=== PATIENT | male | born 1960 | race Caucasian/White ===

== ENCOUNTER → 2020-03-08 07:36 | Outpatient (BNVA) | payer OTHER, SELFPAY | PROVIDERS: Visit Provider Nurse Practitioner | DX: G24.5 Blepharospasm (principal); G43.709 Chronic migraine without aura, not intractable, without status migrainosus; R56.9 Unspecified convulsions; Z86.73 Personal history of transient ischemic attack (TIA), and cerebral infarction without residual deficits | CPT/HCPCS: 99205; 99999 ==

== ENCOUNTER → 2020-03-20 07:56 | Outpatient (BNVA) | payer OTHER, SELFPAY | PROVIDERS: Referring Provider Nurse Practitioner; Visit Provider Specialist | DX: G40.909 Epilepsy, unspecified, not intractable, without status epilepticus (principal); G24.5 Blepharospasm; F17.290 Nicotine dependence, other tobacco product, uncomplicated | CPT/HCPCS: 95816 ==

== ENCOUNTER 2020-03-21 08:03 | Outpatient (CLI) | payer OTHER, SELFPAY ==
--- NOTE | 2020-03-21 08:13 | MR_ITS ---
WS: [id number] MRI HEAD WITH CONTRAST TECHNIQUE: Sagittal T1, T2 axial, T2 axial FLAIR, axial susceptibility weighted imaging, axial diffus ion weighted images, and coronal T2 images were obtained. Pre and post-T1 axial and post T1 coronal i mages. ADC and FSPGR images. CLINICAL INFORMATION: See DX COMPARISON: None. FINDINGS: No evidence of restricted diffusion to suggest acute ischemia. Ventricular system and basal cisterns are patent. Mild small vessel changes. Mild parenchymal volume loss. Normal posterior fossa. Normal v ascular flow voids at the skull base. No extra-axial fluid collections. No evidence of mass or mass e ffect. Chronic lacunar infarct right caudate. Mild mucosal thickening in the paranasal sinuses. Masto id air cells are well aerated. No hemosiderin on the susceptibility weighted images. Normal optic chiasm and pituitary infundibulum. Mild symmetric atrophy involving the temporal lobes a nd hippocampal formations. No abnormal gadolinium enhancement. Normal dural venous sinuses. Proximal 7th and 8th cranial nerves appear normal. No signal abnormalities in the mesial temporal lobes. MR/MR head wo/w con [id number] IMPRESSION: 1. No evidence of restricted diffusion to suggest acute ischemia. 2. Mild supratentorial white matter changes most consistent with small vessel disease in a patient this age. Mild parenchymal volume loss. 3. Chronic lacunar infarct right caudate. 4. Mild symmetric atrophy involving the temporal lobes and hippocampal formati ons. No signal abnormalities in the temporal lobes. 5. No abnormal gadolinium enhancement. 6. Mild mucosal thickening in the paranasal sinuses. Mastoid air cells are wel l aerated.
--- NOTE | 2020-03-21 08:21 | XR_ITS ---
WS: [id number] Orbits, 2 views, 03/21/2020 Clinical Data: FOR MRI Comparison: None. Findings: No radiopaque foreign bodies are seen in the regions of the orbits. The orbits are intact without fra cture. XR/XR eye foreign body [id number] Impression: Negative for radiopaque orbital foreign body.
[2020-03-24 10:38] LABS: Blood Urea Nitrogen 12 mg/dL (6-20); Glomerular Filtration Rate 86.4 mL/min (90-130)
== END 2020-03-21 08:04 | disposition home or self-care (01) ==
LOC: RADWPI 08:09
PROVIDERS: Family Provider Nurse Practitioner; PCP Nurse Practitioner; Visit Provider Nurse Practitioner
DX: G43.709 Chronic migraine without aura, not intractable, without status migrainosus (principal); R56.9 Unspecified convulsions; Z86.73 Personal history of transient ischemic attack (TIA), and cerebral infarction without residual deficits; I63.81 Other cerebral infarction due to occlusion or stenosis of small artery; G31.89 Other specified degenerative diseases of nervous system; J34.89 Other specified disorders of nose and nasal sinuses
CPT/HCPCS: 70030; 70553; 82565; 84520; A9579

== ENCOUNTER 2020-04-21 12:32 | Outpatient (CLI) | payer OTHER, SELFPAY ==
--- NOTE | 2020-04-21 12:42 | USCV_ITS ---
Lucas Sparks Age: 59 Gender: M : 1960 Exam Date: 04/21/2020 13:21 Ordering Phys: Bob BeckmanP MSN AGACNP-BC Technologist: Patrizia Carreon Exam Location: [facility] – [place] Indication: TIA Risk Factors: Unknown Previous Vascular Surgery: None Right Brachial BP: / Left Brachial BP: / Right Left Velocity (cm/s) Spectral Plaque Velocity (cm/s) Spectral Plaque Syst/Diast Broadening Syst/Diast Broadening 94.80/ 14.30 Prox CCA 116.90/ 28.60 84.90/ 23.20 Mid CCA 89.40 / 27.50 78.30/ 22.10 Hetro Distal CCA 75.60 / 16.00 55.20/ 21.80 Prox ICA 53.20 / 18.70 72.20/ 27.20 Mid ICA 68.90 / 25.40 79.90/ 27.80 Distal ICA 66.50 / 24.80 137.80 ECA 67.60 0.94 ICA/CCA 0.77 Antegrade Vertebral Antegrade 25.70/ 8.20 cm/s 35.00/ 9.70 cm/s Tri Subclavian Tri 101.3 72.50 0 CONCLUSIONS Right ICA stenosis <50%. Mild atheromatous plaque right carotid bulb/ICA. Left ICA stenosis <50%. Mild atheromatous plaque left carotid bulb/ICA. Normal antegrade Doppler flow noted in the right vertebral artery. Normal antegrade Doppler flow noted in the left vertebral artery. Christian Benavides MD (Electronically Signed) Final Date: 21 April 2020 16:46 S
--- NOTE | 2020-04-21 12:42 | USCV_ITS ---
Lucas Sparks Age: 59 Gender: M : 1960 Exam Date: 04/21/2020 12:59 Ordering Phys: Bob BeckmanP MSN AGACNP-BC Technologist: Patrizia Carreon [place] [facility] [place]: TIA BP: / HR: 69 Rhythm: Sinus Technical Quality: Adequate MEASUREMENTS (Male / Female) Normal Values 2D ECHO LV Diastolic Diameter PLAX 3.7 cm 4.2 - 5.9 / 3.9 - 5.3 cm LV Systolic Diameter PLAX 4.6 cm LV Chamber Size 4.0 cm IVS Diastolic Thickness 1.4 cm 0.6 - 1.0 / 0.6 - 0.9 cm IVS Systolic Thickness 2.1 cm LVPW Diastolic Thickness 1.3 cm 0.6 - 1.0 / 0.6 - 0.9 cm LVPW Systolic Thickness 2.2 cm RV Chamber Size 3.7 cm LVOT Diameter 2.0 cm LV Ejection Fraction 2D Teich 68.9 % LV Ejection Fraction MOD 2C 42.3 % LV Ejection Fraction 2C AL 47.6 % LA Diameter 3.9 cm LA Width 3.4 cm LA Height 4.4 cm RA Width 2.7 cm RA Height 4.4 cm Aorta at Sinotubular Diameter 4.0 cm M-MODE LV Diastolic Diameter MM 4.9 cm 4.2 - 5.9 / 3.9 - 5.3 cm LV Systolic Diameter MM 3.0 cm LV Ejection Fraction MM Teich 69.7 % IVS Diastolic Thickness MM 1.3 cm 0.6 - 1.0 / 0.6 - 0.9 cm IVS Systolic Thickness MM 1.4 cm LVPW Diastolic Thickness MM 1.1 cm 0.6 - 1.0 / 0.6 - 0.9 cm LVPW Systolic Thickness MM 1.8 cm RV Diastolic Diameter MM 1.1 cm Aortic Annulus Diameter 4.3 cm LA Ao Ratio MM 0.9 MV E Point Septal Separation 0.3 cm DOPPLER AV Peak Velocity 165.0 cm/s LVOT Peak Velocity 115.0 cm/s AV Area Cont Eq vti 2.5 cm squared AV Area Cont Eq pk 2.2 cm squared MV Area PHT 3.5 cm squared Mitral E to A Ratio 1.4 MV E' Velocity 10.0 cm/s Mitral E to MV E' Ratio 10.3 Mitral E to LV E' Lateral Ratio 10.3 Mitral E to LV E' Septal Ratio 10.3 TR Peak Velocity 210.1 cm/s TR Peak Gradient 17.7 mmHg TR Mean Velocity 141.5 cm/s TR Mean Gradient 9.4 mmHg TR Velocity Time Integral 47.7 cm TV Peak E Velocity 73.0 cm/s Right Atrial Pressure 3.0 mmHg Pulmonary Artery Systolic Pressu 20.7 mmHg PV Peak Velocity 84.0 cm/s RV Acceleration Time 0.2 s RV Ejection Time 0.3 s RV AcT/ET 0.7 FINDINGS Left Ventricle Normal left ventricular cavity size. Normal left ventricular systolic function. No regional wall motion abnormalities. Left ventricular ejection fraction is estimated at 60 %. Grade II/IV diastolic dysfunction, moderately elevated filling pressures. Right Ventricle The right ventricle is normal in size and function. Right Atrium The right atrium is normal in size. Left Atrium The left atrium is normal in size. Mitral Valve Moderately thickened mitral valve. No mitral valve stenosis. Mild mitral valve regurgitation. Aortic Valve Structurally normal aortic valve without significant sclerosis or stenosis. There is no aortic regurgitation. Tricuspid Valve Trace to mild tricuspid valve regurgitation. Pulmonic Valve Structurally normal pulmonic valve without significant stenosis. There is no pulmonic regurgitation. Pericardium Normal pericardium without effusion. Aorta Normal ascending aorta dimension. CONCLUSIONS 1-Normal left ventricular cavity size. Normal left ventricular systolic function. No regional wall motion abnormalities. Left ventricular ejection fraction is estimated at 60 %. Grade II/IV diastolic dysfunction, moderately elevated filling pressures. 2-Moderately thickened mitral valve. No mitral valve stenosis. Mild mitral valve regurgitation. 3-Structurally normal aortic valve without significant sclerosis or stenosis. There is no aortic regurgitation. 4-Trace to mild tricuspid valve regurgitation. 5-There is no pericardial effusion. 6-Pulmonary artery systolic pressure is within normal limits. 7-Right atrial pressure is around 5 mm of mercury. 8-There are no prior echocardiogram studies to compare. Dariel Bustamante MD (Electronically Signed) Final Date: 22 April 2020 20:21 S
== END 2020-04-21 12:33 | disposition home or self-care (01) ==
LOC: RAD 12:33
PROVIDERS: Family Provider Nurse Practitioner; PCP Nurse Practitioner; Visit Provider Nurse Practitioner
DX: Z86.73 Personal history of transient ischemic attack (TIA), and cerebral infarction without residual deficits (principal); G45.9 Transient cerebral ischemic attack, unspecified; I08.1 Rheumatic disorders of both mitral and tricuspid valves
CPT/HCPCS: 93306; 93880

== ENCOUNTER → 2020-12-25 10:48 | Outpatient (BNVA) | payer OTHER, SELFPAY | PROVIDERS: Family Provider Nurse Practitioner; PCP Nurse Practitioner; Visit Provider Nurse Practitioner | DX: G43.109 Migraine with aura, not intractable, without status migrainosus (principal); R56.9 Unspecified convulsions; F17.210 Nicotine dependence, cigarettes, uncomplicated | CPT/HCPCS: 99213; 99214 ==

== ENCOUNTER 2021-09-07 16:40 | Emergency (ER) | payer OTHER, SELFPAY ==
[2021-09-07] VITALS (7 sets, daily range): BP systolic 124–148; BP diastolic 80–91; PULSE 76–89; RESP 15–18; TEMP 36.3; O2SAT 97–100; BMI 27.8
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
[2021-09-07 19:56] LABS: Basophils % 0.4 %; Eosinophils % 0.1 %; Hematocrit 38.6 % (42.0-52.0); Hemoglobin 13.4 g/dL (11.7-16.6); Lymphocytes # 0.8 10^3/uL (0.8-4.8); Lymphocytes % 7.1 %; Mean Corpuscular HGB Conc 34.7 g/dL (30.0-36.0); Mean Corpuscular Hemoglobin 32.3 pg (28.0-34.0); Mean Platelet Volume 11.2 fL (7.4-10.4); Monocytes # 0.8 10^3/uL (0.2-0.9); Monocytes % 7.1 %; Neutrophils # 8.97 10^3/uL (1.8-7.7); Neutrophils % 84.5 %; Nucleated Red Blood Cells % 0 %; Platelet Count 128 10^3/cmm (130-400); Red Blood Count 4.15 10^6/uL (4.1-5.3); Red Cell Distribution Width 11.6 % (12.1-15.1); White Blood Count 10.6 10^3/uL (4.0-10.0)
[2021-09-07 20:05] LABS: INR 1.12 (0.8-1.2)
[2021-09-07] MEDS: morphine 4 mg/mL SDV 1 mL IVP (20:06)
[2021-09-07 20:10] LABS: Alanine Aminotransferase 14 U/L (0-41); Albumin Level 3.9 g/dL (3.5-5.2); Alkaline Phosphatase 52 IU/L (40-130); Anion Gap 17.4 (5-19); Aspartate Amino Transferase 22 U/L (0-40); Blood Urea Nitrogen 11 mg/dL (8-23); Calcium 8.2 mg/dL (8.5-10.5); Carbon Dioxide 18 mmol/L (22-29); Chloride 106 mmol/L (98-107); Globulin 1.8 g/dL (1.3-4.6); Glomerular Filtration Rate 98.3 mL/min (90-130); Glucose 94 mg/dL (65-115); Osmolality Calculated 285 mOsm/kg (285-295); Potassium 3.4 mmol/L (3.5-5.1); Sodium 138 mmol/L (136-145); Total Bilirubin 0.5 mg/dL (0.15-1.2); Total Protein 5.7 g/dL (6.6-8.7)
[2021-09-07] MEDS: iohexol 300 mg/mL 100 mL Btl IV (20:24)
[2021-09-07] MEDS: HYDROmorphone 1 mg/mL INJ 1 mL 0.5 MG IVP (22:26)
[2021-09-07] MEDS: ondansetron 2 mg/ML SDV 2 mL 4 MG IVP (22:27)
[2021-09-07 22:32] LABS: SARS Covid-2 Antigen Negative (Negative)
== END 2021-09-07 23:18 ==
PROVIDERS: Emergency Provider Emergency Medicine; PCP Nurse Practitioner
DX: Z04.1 Encounter for examination and observation following transport accident (principal); Z79.82 Long term (current) use of aspirin; I10 Essential (primary) hypertension; V89.2XXA Person injured in unspecified motor-vehicle accident, traffic, initial encounter; Z20.822 Contact with and (suspected) exposure to COVID-19
CPT/HCPCS: 71260; 72170; 72192; 74177; 80053; 85025; 85610; 86900; 87426; 96374; 96375; 99285; J1170; J2270; J2405; Q9967

== ENCOUNTER → 2021-12-24 15:31 | Outpatient (BNVA) | payer OTHER, SELFPAY | PROVIDERS: PCP Nurse Practitioner; Visit Provider Nurse Practitioner | DX: G43.109 Migraine with aura, not intractable, without status migrainosus (principal); R56.9 Unspecified convulsions | CPT/HCPCS: 99213; 99214 ==

== ENCOUNTER 2021-12-26 13:34 | Emergency (ER) | payer OTHER, SELFPAY ==
--- NOTE | 2021-12-26 13:37 | W.ED.SEIZURE ---
HPI - Seizure General: Chief Complaint: Seizure Stated Complaint: SEIZURE Time Seen by Provider: 12/26/21 13:36 History of Present Illness: HPI Narrative: Mr. Sparks is a 61-year-old gentleman with history of seizure-like episodes who presents to the emergency department due to seizure. He reports infrequent seizure history perhaps once every 3 to 4 years. While at work today he did have preceding abnormal feeling, in the past when he gets this feeling he is able to relax and lay down and does not always have a seizure, however due to work he had a seizure that was witnessed with tonic-clonic activity. He did have anterior tongue biting and loss of bowel and bladder continence. Per EMS the patient was combative and postictal. He currently feels back to baseline. He does have mild to moderate intensity muscle aches primarily in the back of his legs. He denies specific known provoking factors or recent changes in health. He has been compliant with his medication regimen. No other specific changes in health, exacerbating, or alleviating factors identified. Onset (ago): minute(s) Description of Episode: loss of consciousness, tonic-clonic movement, bladder incontinence and post-event confusion Witnessed: Yes - by Bystander Seizure History: Yes Place: Work Review of Systems General: Reports: 10 or more systems reviewed and unremarkable except in HPI and below PFSH ED PFSH: Medical History Family history of melanoma Hypertension Migraine headache with aura Seizure Seizure-like activity Family History Other CAD (coronary artery disease) Dementia Hypertension Stroke Social History Smoking and tobacco status: never smoked Alcohol intake: current Alcohol intake frequency: few times a week Alcohol type: beer History of recent travel: No Physical Exam Const: COMMON NORMALS: alert GENERAL APPEARANCE: cooperative and well developed HENMT: COMMON NORMALS: normocephalic HEAD & SCALP: normocephalic OTHER: Evidence of tongue bite on tip of tongue, no gross laceration or active bleeding. Eye: COMMON NORMALS: conjunctivae normal CONJUNCTIVA: Yes conjunctivae normal SCLERA: sclerae normal Neck/C-Spine: COMMON NORMALS: supple GENERAL: Yes trachea midline Resp: COMMON NORMALS: normal respiratory effort and clear to auscultation bilaterally EFFORT & INSPECTION: Yes able to speak in complete sentences AUSCULTATION: clear to auscultation bilaterally Cardio: COMMON NORMALS: regular rate and regular rhythm RATE: regular rate RHYTHM: regular rhythm GI: COMMON NORMALS: Soft to palpation PALPATION: Yes Soft to palpation and No Tenderness to palpation present (GI) PERCUSSION: normal to percussion Extremity: GENERAL: Yes normal exam except as noted and No edema Neuro: COMMON NORMALS: CN's II-XII intact bilaterally, moves all extremities, no focal motor deficits and no sensory deficits noted SENSORIUM/ORIENTATION: Yes alert and Yes Orientation impaired (mildly postictal appearing, non focal exam) Psych: COMMON NORMALS: mental status grossly normal and Normal thought process present THOUGHT PROCESS: Normal thought process present Course ED course: - Patient was seen and evaluated by me at bedside - Patient placed on cardiac monitors, IV access obtained -IV fluids given - Initial evaluation notable for exam as above, no focal deficits. - Labs personally interpreted by me - Labs notable for no leukocytosis, normal hemoglobin. Metabolic panel with mild decreased bicarb likely secondary to seizure activity. Prolactin greater than 3 times upper limit of normal. - Upon serial reexamination after treatment the patient was improved with resolution of postictal findings. - Based on patient history, evaluation, and testing as interpreted the most likely cause of the patient's condition is seizure. Discussed with neurology and patient will be started on antiepileptic and plan for neurology follow-up - The results of ED evaluation were discussed with the patient including prescriptions and/or symptomatic cares (if applicable) including appropriate and responsible use, seizure precautions, followup plan, and return precautions. The patient verbalized understanding and felt safe for discharge. - Patient discharged in satisfactory condition. Note: Click bubbles or prepopulated chester in note writing are used for assistance with data collection and billing and are inherently more limited than narrative and other text portions of this note. Please use narrative for additional clinical history and defer to narrative/free test for any case of contradictory information. If information appears in only free text or click bubble it should be considered present or absent as reported. Please contact note technical proposal writer for clarifications of clinical information or contradictory information. MDM is a brief summary, contradictory or erroneous seeming information should be clarified and full note should be reviewed. Vital Signs: Vital signs: Vital Signs Temperature 98.1 F 12/26/21 16:44 Pulse Rate 78 12/26/21 16:44 Respiratory Rate 14 12/26/21 16:44 Blood Pressure 124/74 12/26/21 16:44 Pulse Oximetry 95 12/26/21 16:44 MDM - Seizure MDM Narrative Medical decision making narrative: 61-year-old seizure-like episodes though no EEG confirmation presenting with seizure. This was associated with anterior tongue biting, loss of continence, and postictal combativeness witnessed by EMS. Patient mildly postictal on initial evaluation. Improved throughout ED course. Discussed with neurology and will initiate Keppra. Ortiz for outpatient follow-up. Medical Records Attestation: I reviewed the patient's medical records. Lab Data Attestation: I reviewed the patient's lab results. Result diagrams: 12/26/21 14:10 12/26/21 14:10 Labs: Laboratory Results WBC 7.0 10^3/uL (4.0-10.0) 12/26/21 14:10 RBC 4.74 10^6/uL (4.1-5.3) 12/26/21 14:10 Hgb 15.3 g/dL (11.7-16.6) 12/26/21 14:10 Hct 43.5 % (42.0-52.0) 12/26/21 14:10 MCV 91.8 fl (80-94) 12/26/21 14:10 MCH 32.3 pg (28.0-34.0) 12/26/21 14:10 MCHC 35.2 g/dL (30.0-36.0) 12/26/21 14:10 RDW 11.8 % (12.1-15.1) L 12/26/21 14:10 Plt Count 152 10^3/cmm (130-400) 12/26/21 14:10 MPV 11.1 fL (7.4-10.4) H 12/26/21 14:10 Neut % (Auto) 77.1 % 12/26/21 14:10 Lymph % (Auto) 14.5 % 12/26/21 14:10 Glasscock % (Auto) 6.8 % 12/26/21 14:10 Eos % (Auto) 0.9 % 12/26/21 14:10 Baso % (Auto) 0.4 % 12/26/21 14:10 Neut # (Auto) 5.43 10^3/uL (1.8-7.7) 12/26/21 14:10 Lymph # (Auto) 1.0 10^3/uL (0.8-4.8) 12/26/21 14:10 Glasscock # (Auto) 0.5 10^3/uL (0.2-0.9) 12/26/21 14:10 Eos # (Auto) 0.1 10^3/uL (0.0-0.8) 12/26/21 14:10 Baso # (Auto) 0.0 10^3/uL (0.0-0.1) 12/26/21 14:10 Nucleated RBC % (auto) 0 % 12/26/21 14:10 Nucleated RBCs # 0.0 /100WBC 12/26/21 14:10 Sodium 137 mmol/L (136-145) 12/26/21 14:10 Potassium 3.9 mmol/L (3.5-5.1) 12/26/21 14:10 Chloride 104 mmol/L (98-107) 12/26/21 14:10 Carbon Dioxide 18 mmol/L (22-29) L 12/26/21 14:10 Anion Gap 18.9 (5-19) 12/26/21 14:10 BUN 11 mg/dL (8-23) 12/26/21 14:10 Creatinine 0.9 mg/dL (0.7-1.2) 12/26/21 14:10 GFR Calculation 85.8 mL/min (90-130) L 12/26/21 14:10 Glucose 79 mg/dL (65-115) 12/26/21 14:10 Calculated Osmolality 282 mOsm/kg (285-295) L 12/26/21 14:10 Calcium 9.5 mg/dL (8.5-10.5) 12/26/21 14:10 Total Bilirubin 0.3 mg/dL (0.15-1.2) 12/26/21 14:10 AST 19 U/L (0-40) 12/26/21 14:10 ALT 14 U/L (0-41) 12/26/21 14:10 Alkaline Phosphatase 107 IU/L (40-130) 12/26/21 14:10 Total Protein 7.0 g/dL (6.6-8.7) 12/26/21 14:10 Albumin 4.3 g/dL (3.5-5.2) 12/26/21 14:10 Globulin 2.7 g/dL (1.3-4.6) 12/26/21 14:10 Prolactin 54.76 ng/mL (4.0-15.2) H 12/26/21 14:10 Prolactin Cancelled 12/26/21 14:10 Discharge Plan Discharge Patient Disposition: Home Clinical Impression: Generalized seizure Condition: Stable Prescriptions: New Keppra 500 mg tablet 500 mg PO BID Qty: 60 0RF No Action sulfamethoxazole-trimethoprim [Bactrim DS] 800-160 mg tablet 1 tab PO BID 7 Days Qty: 14 0RF mupirocin 2 % ointment 1 applic topical BID 7 Days Qty: 22 0RF citalopram 40 mg tablet 40 mg PO DAILY 0RF sildenafil 100 mg tablet 100 mg PO DAILY PRN0RF Rx Instructions: administer 30 minutes to 4 hours before activity aspirin [Adult Low Dose Aspirin] 81 mg tablet,delayed release (DR/EC) 81 mg PO DAILY Qty: 30 3RF sumatriptan succinate [Imitrex] 100 mg tablet See Rx Instructions PO .COMPLEX PRN (Reason: migraine headache) Qty: 9 3RF Rx Instructions: take 1 tab at onset of headache;may repeat 1 tab after at least 2 hrs; max =2 tabs/24 hrs topiramate [Topamax] 100 mg tablet 100 mg PO DAILY Qty: 90 2RF Discharge Orders: Discharge ED (Routine); Ordered 12/26/21 Ordered By: Miguel A Palacios Referrals: Vilma Lomeli FNP [Primary Care Provider] - Discharge Diet: Usual diet Discharge Activity: Limit activity as instructed Patient Instructions: Generalized Tonic Clonic Seizures (ED) Activity Restrictions/Additional Instructions: Thank you for visiting the emergency department. You were seen and evaluated for seizure. The exact cause of seizure is unclear though based on description likely secondary to seizure disorder. You will be started on Keppra. Please follow-up with neurology. Please follow all seizure precautions as discussed including no driving, do not take baths in a tub or swim, do not cook over open flames, climb tall objects, or otherwise perform dangerous activities if you were to have another seizures. Please return to the emergency department for recurrent seizures or anything else that you are concerned about and feel needs emergency department evaluation. Coding Level of Care Code ED Human Resources Records Clerk for X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 Exam Comprehensive
[2021-12-26 13:48] VITALS: BP 150/76; PULSE 83; RESP 15; TEMP 36.7; O2SAT 95; BMI 28.8
[2021-12-26] MEDS: sodium chloride 0.9% 1,000 ML 999 ML IV (14:13)
[2021-12-26 14:23] LABS: Basophils % 0.4 %; Eosinophils # 0.1 10^3/uL (0.0-0.8); Eosinophils % 0.9 %; Hematocrit 43.5 % (42.0-52.0); Hemoglobin 15.3 g/dL (11.7-16.6); Lymphocytes % 14.5 %; Mean Corpuscular HGB Conc 35.2 g/dL (30.0-36.0); Mean Corpuscular Hemoglobin 32.3 pg (28.0-34.0); Mean Corpuscular Volume 91.8 fl (80-94); Mean Platelet Volume 11.1 fL (7.4-10.4); Monocytes # 0.5 10^3/uL (0.2-0.9); Monocytes % 6.8 %; Neutrophils # 5.43 10^3/uL (1.8-7.7); Neutrophils % 77.1 %; Nucleated Red Blood Cells % 0 %; Platelet Count 152 10^3/cmm (130-400); Red Blood Count 4.74 10^6/uL (4.1-5.3); Red Cell Distribution Width 11.8 % (12.1-15.1)
[2021-12-26 14:31] VITALS: PULSE 81; RESP 15; TEMP 36.7; O2SAT 95
[2021-12-26 15:10] LABS: Alanine Aminotransferase 14 U/L (0-41); Albumin Level 4.3 g/dL (3.5-5.2); Alkaline Phosphatase 107 IU/L (40-130); Anion Gap 18.9 (5-19); Aspartate Amino Transferase 19 U/L (0-40); Blood Urea Nitrogen 11 mg/dL (8-23); Calcium 9.5 mg/dL (8.5-10.5); Carbon Dioxide 18 mmol/L (22-29); Chloride 104 mmol/L (98-107); Globulin 2.7 g/dL (1.3-4.6); Glomerular Filtration Rate 85.8 mL/min (90-130); Glucose 79 mg/dL (65-115); Osmolality Calculated 282 mOsm/kg (285-295); Potassium 3.9 mmol/L (3.5-5.1); Prolactin 54.76 ng/mL (4.0-15.2); Sodium 137 mmol/L (136-145); Total Bilirubin 0.3 mg/dL (0.15-1.2)
[2021-12-26 15:32] VITALS: BP 118/75; PULSE 72; RESP 13; TEMP 36.8; O2SAT 96
[2021-12-26 16:43] VITALS: BP 124/74; PULSE 78; RESP 14; TEMP 36.7; O2SAT 95
[2021-12-26 16:44] VITALS: BP 124/74; PULSE 78; RESP 14; TEMP 36.7; O2SAT 95
== END 2021-12-26 16:35 | disposition home or self-care (01) ==
PROVIDERS: Emergency Provider Emergency Medicine; PCP Nurse Practitioner
DX: G40.409 Other generalized epilepsy and epileptic syndromes, not intractable, without status epilepticus (principal); Z79.82 Long term (current) use of aspirin; I10 Essential (primary) hypertension
CPT/HCPCS: 80053; 84146; 85025; 96360; 99284; J7030

== ENCOUNTER → 2022-05-31 15:23 | Outpatient (BNVA) | payer OTHER, SELFPAY | PROVIDERS: PCP Nurse Practitioner; Visit Provider Nurse Practitioner | DX: G43.109 Migraine with aura, not intractable, without status migrainosus (principal); R56.9 Unspecified convulsions | CPT/HCPCS: 99213; 99214 ==

== ENCOUNTER → 2023-01-01 13:10 | Outpatient (BNVA) | payer OTHER, SELFPAY | PROVIDERS: PCP Nurse Practitioner; Visit Provider Internal Medicine | DX: I10 Essential (primary) hypertension (principal); R07.9 Chest pain, unspecified; R06.02 Shortness of breath | CPT/HCPCS: 99204 ==

== ENCOUNTER 2023-01-30 06:06 | Outpatient (CLI) | payer OTHER, SELFPAY ==
[2023-01-30 06:52] VITALS: BMI 26.6
--- NOTE | 2023-01-30 06:52 | ECG_ITS ---
[facility] Test Date: 2023-01-30 Pat Name: Lucas Sparks Department: Room: Gender: Male Loom Changer: Malia Mitchell : 1960 Requested By: Hero Jameson Order Number: [id number] Stephens MD: Hero Jameson M.D. Interpretive Statements NAME OF STUDY: EXERCISE SESTAMIBI STRESS TEST INDICATION: [Chest Pain, ] EXERCISE DATA: The patient was exercised by Raciel protocol. Baseline heart rate was 61 beats per minute. Baseline blood pressure was 137/82 millimeters of mercury. Target heart rate was 134 beats per minute. Maximum heart rate achieved was 175 which was 130% of the target heart rate. Maximum blood pressure was 197/112 millimeters of mercury. Total exercise time was 9 minutes and 49 seconds. Maximum METs achieved was 13.5. The reason for ending the test was completion of the protocol. The patient complained of shortness of breath during the stress test, which then resolved at the end of the test. ELECTROCARDIOGRAM: BASELINE: Showed sinus rhythm, normal axis, no significant ST-T changes at the baseline noted. [] EXERCISE: At the peak exercise level, [] patient had [address] depressions noted on the leads V4-V6 RECOVERY: During the recovery period, heart rate dropped appropriately. No significant ST-T changes in the recovery suggestive of ischemia noted. [] CONCLUSION: 1. Exercise capacity excellent 2. Heart rate response was appropriate 3. Blood pressure response was appropriate 4. Symptoms not suggestive of ischemia. 5. Electrocardiogram portion of the stress test suggestive of ischemia with ST depressions noted in the leads V4-V6. 6. Nuclear scan will be documented separately. Electronically Signed On 02-10-2023 12:02:46 CDT by Hero Jameson M.D. [email or web address]
--- NOTE | 2023-01-30 06:52 | NMCV_ITS ---
NM butch perf SPECT r/s* [id number] Clare Lucas Age: 62 Gender: M : 1960 Exam Date: 01/30/2023 07:43 Ordering Phys: Hero Jameson M.D ([email or web address]) Technologist: ISRAEL Murillo Exam Location: [facility] Indications: CHEST PAIN, SHORTNESS OF BREATH STRESS TEST Please see separate stress test report in [facility] for full findings IMAGE PROTOCOL Rest/Stress 1 Exercise Day Radiopharmaceutical Dose (mCi) Administration Site Administered by Rest: Tc-99m 10.6 IV ISRAEL Galvez Sestamibi Stress:Tc-99m 32.8 IV ISRAEL Galvez Sestamielier Rest: 30-Jan-2023 60 Discovery 630 Stress: 30-Jan-2023 30 Discovery 630 Radiopharmaceutical was injected at 98 % maximum heart rate. Images obtained in supine and prone position. SPECT RESULTS Technical Quality: Excellent Raw Data Analysis: Normal Image Corrections: No attenuation or motion correction applied Summed Stress Score: 6 Summed Rest Score: 0 Summed Difference Score: 6 PERFUSION FINDINGS There is a large sized, reversible perfusion defect noted in inferior and inferolateral kelley. This is consistent with large area of ischemia in left circumflex artery and RCA territories. FUNCTIONAL RESULTS (calculated via Gated SPECT) Stress Image LV EF (%): 60 Stress EDV (mL):104 TID: 0.97 Stress ESV (mL):42 FUNCTIONAL FINDINGS: There is normal left ventricular systolic function. IMPRESSIONS 1. Abnormal myocardial perfusion imaging with large sized area of ischemia noted in the RCA and left circumflex artery territories. 2. LV systolic function is normal Hero Jameson MD (Electronically Signed) Final Date: 30 January 2023 11:34 S
[2023-01-30 08:40] VITALS: BP 130/74; PULSE 91
== END 2023-01-30 06:07 | disposition home or self-care (01) ==
PROVIDERS: PCP Nurse Practitioner; Visit Provider Internal Medicine
DX: R07.9 Chest pain, unspecified (principal)
CPT/HCPCS: 36415; 78452; 93017; A9500

== ENCOUNTER 2023-02-10 05:51 | Outpatient (CLI) | payer OTHER, SELFPAY ==
[2023-02-10] VITALS (17 sets, daily range): BP systolic 124–166; BP diastolic 79–116; PULSE 47–74; RESP 9–23; TEMP 36.9–37.1; O2SAT 96–100; BMI 28.0
[2023-02-10] MEDS: aspirin 325 mg Tablet PO (06:20)
[2023-02-10] MEDS: diphenhydrAMINE 50 mg Capsule PO (06:20)
[2023-02-10 06:37] LABS: Basophils % 0.7 %; Eosinophils # 0.1 10^3/uL (0.0-0.8); Eosinophils % 1.6 %; Hematocrit 45.7 % (42.0-52.0); Hemoglobin 15.7 g/dL (11.7-16.6); Lymphocytes # 1.6 10^3/uL (0.8-4.8); Lymphocytes % 27.7 %; Mean Corpuscular HGB Conc 34.4 g/dL (30.0-36.0); Mean Corpuscular Volume 93.1 fl (80-94); Mean Platelet Volume 10.7 fL (7.4-10.4); Monocytes # 0.5 10^3/uL (0.2-0.9); Monocytes % 8.1 %; Neutrophils # 3.46 10^3/uL (1.8-7.7); Neutrophils % 61.9 %; Nucleated Red Blood Cells % 0 %; Platelet Count 152 10^3/cmm (130-400); Red Blood Count 4.91 10^6/uL (4.1-5.3); Red Cell Distribution Width 11.7 % (12.1-15.1); White Blood Count 5.6 10^3/uL (4.0-10.0)
--- NOTE | 2023-02-10 07:00 | XACV_ITS ---
Exam Room: 2 Ht: 175 cm Wt: 86 kg BSA: 2.07 m2 Gender: Male : 1960 Any Known Allergies: Other Exam Priority: Routine Procedure(s): Procedure Description: Diagnostic procedure Procedure Description: PCI procedure Procedure Description: Left Heart Catheterization Procedure Description: Coronary IVUS Procedure Description: Drug Eluting Coronary Stent Procedure Description: PTCA Procedure Description: Miscellaneous Procedure Description: ACT Procedure Description: Coronary Angiography Diagnostic Cath Status: Elective Diagnostic Findings * INDICATION: 62-year-old man with medical history of hypertension who has been having chest pain episodes, dyspnea on exertion. He underwent stress test that large area of ischemia in the left circumflex artery and RCA territories. * Left Main has no significant disease. * Right Coronary Artery has moderate diffuse luminal irregularities. * Left circumflex artery is a large sized vessel. * Mid left circumflex artery has a calcified severe 80% stenosis. OM 2 is totally occluded with left to left collaterals. OM 3 has diffuse disease however is small to medium sized vessel. * M * id Circumflex: significant 80% stenosis, MADDY: 3 flow. * Proximal Left Anterior Descending: moderate 50% stenosis, MADDY: 3 flow. * Coronary angiography shows right dominance. PCI Status: Elective PCI Indication: Other Interventional Findings * PROCEDURE DETAIL: We engaged left main artery with XB 3.5 guide catheter. IV heparin was administered to maintain anticoagulation. 0.014 run-through guidewire was used to cross mid circumflex artery stenosis and was put in distal vessel. We predilated the stenosis with 3.0 x 12 mm semicompliant balloon. We then performed IVUS to size the vessel. This was followed by placement of 3.5 x 15 mm resolute [place] drug-eluting stent. We then postdilated proximal part of stent with 4.0 x 12 mm semicompliant balloon followed by 4.0 x 8 mm NC balloon. At this time final angiogram was performed that showed excellent stent expansion, MADDY-3 flow and no residual stenosis.. * Mid Circumflex: 80% stenosis treated with a AB TREK 3.00X12 RX BALLOON, NATALIE Robins LANA 3.5X15 KARON, AB TREK 4.00X12 RX BALLOON, and NATALIE SIM EUPHORA RX 4.22E44SE BALLOON. 0% residual stenosis, MADDY: 3 flow. Conclusions 1. Severe mid left circumflex artery stenosis s/p successful revascularization with KARON x 1. 2. Mid Circumflex was treated with a Balloon, Drug Eluting Stent, Balloon, and Balloon. Recommendations * Aggressive risk factor modification. * Dual antiplatelet therapy with aspirin and plavix for atleast 1 year. * High intensity statin therapy. * Outpatient cardiology follow up in 2 weeks. Interventional RX Recommendation: PCI w/o planned CABG Diagnostic RX Recommendation: PCI w/o planned CABG Anticoagulation: Heparin Pressures Phase:Rest AO : 101 / 72 ( 86 ) @ 8:52:00 AM 105 / 75 ( 91 ) @ 8:55:00 AM 128 / 73 ( 96 ) @ 8:57:00 AM 129 / 73 ( 97 ) @ 8:57:00 AM 135 / 77 ( 99 ) @ 9:02:00 AM 127 / 71 ( 93 ) @ 9:32:00 AM LV : 137 / -11 / 14 @ 8:57:00 AM 136 / -10 / 14 @ 8:57:00 AM Valves Phase:DefaultPhase AV : 7.0 @ 8:40:24 AM AV Mean Gradient: 11.0 @ 8:40:24 AM 11.0 @ 8:40:24 AM Clinical Evaluation EBL: 5mL-10mL Procedural Details Procedure Consent Obtained. Admit Source: Out Patient. Pre-Procedure Time Out. Identified patient by full name and date of as verbalized by the patient/guarantor. Does the consent match the physician's order: Yes. Accurate & Complete Informed Consent: Yes. Inpatient/Outpatient History & Physical on Chart: Yes. If H&P is completed, is and addenduem needed: No; If yes, is the addendum complete: N/A. Visualize and Verify Site with Patient/Guarantor: N/A. Relevant Radiology Images available: Yes. The risks, benefits, and alternatives of sedation and/or procedure were discussed by physician. The patient agrees to continue. Procedure started. [facility] Clinical Fraility Score: 3: Managing Well. Real Estate Services Coordinator Indications: Worsening Angina. Chest Pain Symptom Assessment: Atypical Angina. Correct patient, site and procedure confirmed by cath team. Current diagnosis: Chest Pain, Abnormal stress test. PERRLA. Strong, equal hand sales order coordinator bilaterally. Lungs clear x 5 lobes. IV Site on Arrival: 18 gauge in the right anticubital. IV Fluids: 0.9% NaCl at 75ml/hr. 0 mL infused prior to labeler. Pre Procedural Pulses: bilateral dorsalis pedis was Doppled. Pre Procedural Pulses: bilateral posterior tibial was 2+. Pre Procedural Pulses: bilateral radial was 3+. Oxygen started at 2liters/min via nasal canula. right radial was prepped with chloroprep then draped in the usual sterile fashion. right groin was prepped with chloroprep then draped in the usual sterile fashion. Baseline sample Acquired. HR: 60 BPM. Physician notified. Physician arrived. Physician scrubbed in. Immediate Pre-Procedure Time Out. Correct Patient: Yes; Correct Procedure: Yes; Correct Site: Yes; Correct Patient Position: Yes; Correct Supplies: Yes; Dried Flammable Prep: Yes; Blood Products Available: No;. Lidocaine 1% infiltrated to the right radial. Arterial access obtained. A 5 occitan TIG catheter in over exchange wire. Multiple views taken of left coronary artery. Catheter redirected to the RCA. Multiple views taken of right coronary artery. Exchange wire in through catheter. Catheter seated in LV. Wire out. EDP Sample taken: LV 137/-12,14; HR: 60 BPM; SpO2: 100%. Pullback taken: LV 136/-11,14; AO 128/73(96); Mean: 11mmHg, Peak to Peak: 7mmHg, SEP: 18sec/min; HR: 58 BPM; SpO2: 100%. Catheter removed over the exchange wire. 6 occitan XB 3 guide catheter was inserted over the wire. Supplies: Co-ferry pilot, endoflator. Runthrough guidewire was advanced through the guide catheter to lesion in the mid Circ. Balloon inserted to lesion in the mid Circ. Inflation number : 1 A AB TREK 3.00X12 RX BALLOON was prepped and advanced across the Mid CX , then inflated to 12 BELIA for 0:11 seconds. Inflation number: 2 The AB TREK 3.00X12 RX BALLOON was reinflated across the Mid CX, to 12 BELIA for 0:11 seconds. Inflation number: 3 The AB TREK 3.00X12 RX BALLOON was reinflated across the Mid CX, to 12 BELIA for 0:12 seconds. Inflation number: 4 The AB TREK 3.00X12 RX BALLOON was reinflated across the Mid CX, to 12 BELIA for 0:24 seconds. Balloon out. IVUS catheter in over runthrough wire. IVUS catheter run of mid circumflex. IVUS catheter out. Inflation Number : 5 A NATALIE R LANA 3.5X15 KARON -Lot Number#[id number] EXP 02-18-2025 was prepped and advanced across the Mid CX. The stent was deployed at 12 BELIA for 0:22 seconds. Stent inserted to lesion in the mid Circ. Angiography performed, checking results. Stent balloon out over wire. Balloon inserted to lesion in the mid Circ. Unable to cross. NC balloon out intact. Guideliner support catheter advanced over runthrough wire. ACT drawn. Results 394 seconds. Therapeutic limits - pre-heparin administration 90-150 seconds and monitoring heparin during a vascular procedure >250 seconds. NC Balloon inserted to lesion in the mid Circ. Unable to cross. NC balloon out intact. Inflation number : 6 A AB TREK 4.00X12 RX BALLOON was prepped and advanced across the Mid CX , then inflated to 18 BEILA for 0:18 seconds. Balloon inserted to lesion in the mid Circ. Balloon out. NC Balloon inserted to lesion in the mid Circ. Inflation number : 7 A MDT NC EUPHORA RX [id number] BALLOON was prepped and advanced across the Mid CX , then inflated to 16 BELIA for 0:14 seconds. Balloon out. Guideliner out. Angiography performed, checking results. Runthrough out. Angiography perfomed, checking results. ACT drawn. Results 320 seconds. Therapeutic limits - pre-heparin administration 90-150 seconds and monitoring heparin during a vascular procedure >250 seconds. Guide catheter out over exchange wire. Physician scrubbed out. Post Procedure: Pulses reassessed and unchanged. PERRLA. Strong, equal hand sales order coordinator bilaterally. No VTE prophylaxis required. Medication's Wasted: Lidocaine 1% = 1 mL. Medication's Wasted: Nitro = 49.8 mg. Medication's Wasted: Heparin = 2000 units. Medication's Wasted: Other = Fentanyl 25 mcg. Total IV fluids: 70 mL. A TR Band was successful obtaining hemostatsis at the Right Radial artery insertion site. Post-op diagnosis: Severe mid circumflex stenosis, post placement of 1 stent. Complications: None. Estimated blood loss: 5mL-10mL. Responsiveness - Normal response to verbal stimuli; alert and oriented, PERRLA. Airway - Unaffected, no intervention required; spontaneous ventilation. Circulation: W/N/L, pulses unchanged. Nausea/Vomiting: No. Procedure completed. Patient transferred by wheelchair to CPRU. Vital chart was stopped. Access Site Site: Right Radial artery Sheath Size: 6 Fr Hemostasis Method: TR Band Hemostasis Success: Successful Procedure Medications Start: 7:40 AM Stop: 7:40 AM Medication: Versed Amount: 1 mg Route: I.V. Start: 7:40 AM Stop: 7:40 AM Medication: Fentanyl Amount: 50 mcg Route: I.V. Start: 7:47 AM Stop: 7:47 AM Medication: Versed Amount: 1 mg Route: I.V. Start: 7:50 AM Stop: 7:50 AM Medication: Nitrogylcerin Amount: 200 mcg Route: I.A. Start: 7:51 AM Stop: 7:51 AM Medication: Heparin Amount: 5000 units Route: I.V. Start: 8:03 AM Stop: 8:03 AM Medication: Heparin Amount: 4000 units Route: I.V. Start: 8:05 AM Stop: 8:05 AM Medication: Versed 1 mg and Fentanyl 25 mcg Route: I.V. Start: 8:15 AM Stop: 8:15 AM Medication: Versed Amount: 1 mg Route: I.V. Start: 8:38 AM Stop: 8:38 AM Medication: Plavix Amount: 600 mg Route: P.O. I, the attending physician, have reviewed and verified all procedure medications. Yes, all medications given per verbal order History/Risk Factors Hypertension: Yes Dyslipidemia: No Peripheral Arterial Disease (PAD): No Myocardial Infarction (RI): No Obesity: No Renal Disease: No Tobacco Use: Never Prior Interventions PCI: No CABG: No Valve Surgery: No Report Signatures Finalized by Hero Jameson MD on 02/22/2023 07:04 PM
[2023-02-10 07:19] LABS: Anion Gap 12.7 (5-19); Blood Urea Nitrogen 11 mg/dL (8-23); Calcium 8.9 mg/dL (8.5-10.5); Carbon Dioxide 25 mmol/L (22-29); Chloride 103 mmol/L (98-107); Glomerular Filtration Rate 75.7 mL/min (90-130); Glucose 110 mg/dL (65-115); Osmolality Calculated 284 mOsm/kg (285-295); Potassium 3.7 mmol/L (3.5-5.1); Sodium 137 mmol/L (136-145)
--- NOTE | 2023-02-10 07:38 | W.PM.OPSFHP ---
Same Day Surgery H&P Indication for Procedure/HPI DATE OF PROCEDURE: February 10, 2023 CHIEF COMPLAINT/INDICATIONFOR SURGICAL PROCEDURE: Chest pain/ abnormal stress test PREOP DIAGNOSIS: Chest pain/ abnormal stress test PLANNED PROCEDURE: Operation Date: 02/10/23 07:00 Proposed Procedures p LEFT HEART CATH 38456,R94.39(Left) - Hero Jameson M.D Possible percutaneous coronary intervention 62-year-old man with medical history of hypertension who has been having chest pain episodes, dyspnea on exertion. He underwent stress test that large area of ischemia in the multiple Coronary artery territories. Plan for coronary angiogram with possible percutaneous coronary intervention. Patient had questions regarding possible stent placement. Had a detailed discussion regarding these. He is agreeable to PCI if needed. Risks and benefits of the procedure discussed with the patient. Medications/Allergies* Home Medications Medication Instructions Recorded Confirmed Type tadalafil 20 mg tablet 20 mg PO .weekly PRN Erectile 01/01/23 02/10/23 History Dysfunction Allergies/Adverse Reactions Allergy/AdvReac Type Severity Reaction Status Date / Time hydrocortisone Allergy unk Verified 02/10/23 07:20 Current Medications: Generic Name Dose Route Start Last Admin Trade Name Freq PRN Reason Stop Dose Admin Sodium Chloride 1,000 mls @ 50 mls/hr 02/10/23 06:00 02/10/23 06:53 Sodium Chloride 0.9% IV 02/11/23 01:59 Not Given .Q20H ONE Pertinent History/Comorbid Conditions* Medical History (Updated 01/01/23 @ 14:32 by Hero Jameson M.D) Family history of melanoma Hypertension Migraine headache with aura Seizure Seizure-like activity Family History (Updated 03/08/20 @ 08:05 by Wilda Madrid RN) CAD (coronary artery disease) Dementia Hypertension Stroke Social History Smoking and tobacco status: never smoked Alcohol intake: current Alcohol intake frequency: few times a week Alcohol type: beer Pertinent Exam Findings alert, oriented x 3, clear to auscultation bilaterally and regular rate & rhythm Conscious Sedation Assessment PATIENT ASSESSED PRIOR TO SEDATION, WITH NO CHANGE NOTED: Yes AIRWAY EVAL/ANESTHESIA PLAN: normal airway, ASA III, Local Anesthesia, Risks, benefits & alternatives of sedation and/or procedure discussed and Patient agrees to continue as planned ADDITIONAL INFORMATION: Moderate sedation Recommendations Surgery/Procedure today (Left heart cath with possible percutaneous coronary intervention) Coding Level of Care Code Acute Code for Chg Fwd Diagnoses
--- NOTE | 2023-02-10 08:45 | SUR.EXTENDED ---
RECEIVED THE PATIENT BACK FROM SYSTEMS QA ANALYST VIA WHEELCHAIR S/P [facility] WITH PCI. PATIENT AMBULATED TO THE BED WITH EASE. ALERT AND ORIENTED X 3. CORRESPONDENCE SPECIALIST PLACED AND VITAL SIGNS OBTAINED. TR BAND INTACT TO THE RIGHT RADIAL WITH NO BLEEDING OR HEMATOMA NOTED. FATHER AT BEDSIDE. POST RADIAL PCI ACTIVITY INSTRUCTIONS GIVEN TO THE PATIENT WITH HIS VERBALIZATION VOICED. NO OTHER ASSESSMENT CHANGES NOTED FROM PRE CATH ASSESSMENT. WILL TRANSFER TO CSU ROOM 103 AFTER RECOVERY PERIOD.
--- NOTE | 2023-02-10 09:24 | PC.NURSE ---
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
[2023-02-10] MEDS: sodium chloride 0.9% 1,000 ML 50 ML IV (09:47)
--- NOTE | 2023-02-10 12:55 | PM.SDS ---
Short Stay Summary Providers Date of Admit/Discharge: 02/10/23 Attending Provider: Hero Jameson M.D Primary Care Provider: CLEMENTE Diaz Chief Complaint: R94.39 HPI History of Present Illness 62-year-old man with medical history of hypertension who has been having chest pain episodes, dyspnea on exertion.? He underwent stress test that large area of ischemia in the multiple Coronary artery territories. Plan for coronary angiogram with possible percutaneous coronary intervention. Review of Systems Const: Denies: fever(s) or chills Eyes: Denies: change in vision ENMT: Denies: bleeding gums Card: Reports: lightheadedness; Denies: chest pain, palpitations, irregular heart rhythm, swelling of feet/ankles, syncope, pre-syncope or dyspnea on exertion Resp: Denies: wheezing, hemoptysis or chest congestion GI: Denies: hematochezia : Denies: hematuria Musc: Denies: neck pain or back pain Skin/Breast: Reports: dry skin Neuro: Denies: headache(s) or dizziness Psych: Reports: anxiety and depression Endo: Reports: tired all the time Low/Lymph: Denies: easy bruising or easy bleeding All/Imm: Denies: seasonal rhinorrhea Home Meds/Allergies Home Medications and Allergies Home Medications Medication Instructions Recorded Confirmed Type tadalafil 20 mg tablet 20 mg PO .weekly PRN Erectile 01/01/23 02/17/23 History Dysfunction Allergies Allergy/AdvReac Type Severity Reaction Status Date / Time hydrocortisone Allergy unk Verified 02/17/23 11:21 PFSH Acute PFSH: Medical History (Updated 02/17/23 @ 13:56 by CLEMENTE Finley) Atherosclerosis of coronary artery Family history of melanoma Hypertension Migraine headache with aura Seizure Seizure-like activity Family History Other CAD (coronary artery disease) Dementia Hypertension Stroke Social History Smoking and tobacco status: never smoked Alcohol intake: current Alcohol intake frequency: few times a week Alcohol type: beer Vitals/I&O/Wt Last Vital Signs Temp 98.8 F 02/10/23 07:14 Pulse 74 02/10/23 12:00 Resp 21 H 02/10/23 12:00 BP 135/86 02/10/23 12:00 Pulse Ox 99 02/10/23 12:00 O2 Del Method Room Air 02/10/23 09:24 Weight last 48 hrs Weight 190 lb Physical Exam Narrative: GENERAL: Patient is alert, awake and oriented x3. [] NECK: No jugular vein distension. [] HEENT: No cyanosis. No icterus. No pallor. [] HEART: Regular S1 and S2. No murmur, rub or gallop. [] LUNGS: Clear to auscultate bilaterally. [] CENTRAL NERVOUS SYSTEM: Grossly nonfocal. [] EXTREMITIES: Lower extremities with no edema Hospital Course Hospital Course Coronary angiogram showed severe mid circumflex circumflex artery stenosis and patient underwent successful revascularization with KARON x1. We have added aspirin and Plavix for at least 1 year. Patient was observed and was discharged home in a stable condition. SSS Data Data Completed and Pending: Pending at discharge Category Date Time Status BEHAVIORAL HEALTH SPECIALIST request for service Routin e Exams 02/10/23 07:00 Taken Discharge Plan Discharge Patient Disposition: Home Prescriptions: New aspirin 81 mg tablet,chewable 81 mg PO DAILY Qty: 90 3RF clopidogrel 75 mg tablet 75 mg PO DAILY Qty: 90 3RF Continued tadalafil 20 mg tablet 20 mg PO .weekly PRN (Reason: Erectile Dysfunction) Rx Instructions: administer approximately 30min before sexual activity; do not use more than 1 dose per 24hrs topiramate [Topamax] 100 mg tablet 100 mg PO BID Qty: 60 6RF Discharge Orders: Discharge Order (Routine); Ordered 02/10/23 Ordered By: Hero Jameson Referrals: Hero Jameson M.D [Physician] - 2 months (During your follow-up with Emmanuelle Angeles, you will be scheduled for an appointment with Dr. Jameson in 2 months. If you have any questions please call ) Emmanuelle Angeles FNP [Nurse Practitioner] - 02/17/23 1:45 pm (Please follow-up with Emmanuelle Angeles on February 17 at 1:45p.m. If you have any questions or need to reschedule. Please call ) Diet: Cardiac Patient Instructions: Aspirin (By mouth), Clopidogrel (By mouth) (Plavix), Coronary Angioplasty (DC), DASH Eating Plan (DC), Chest Pain Stoplight, Opioid Safety, Post Angiogram Home Care Instructions Discharge Date/Time: 02/10/23 16:17 Attestations Medical Necessity Statement*: Care not expected to cross 2 midnights. Time Spent in Patient Care*: less than 30 min Quality Metrics Clinical Quality Measures: [ No reported AMI, CVA or VTE this stay] Coding Level of Care Code Acute Code for Chg Fwd Diagnoses
--- NOTE | 2023-02-10 16:12 | PC.NURSE ---
IV removed, pt brought to front by staff via wheel chair with instruct and belongings.
== END 2023-02-10 16:17 | disposition home or self-care (01) ==
LOC: CCL 05:53 → CSU 11:35
PROVIDERS: PCP Nurse Practitioner; Visit Provider Internal Medicine
DX: R94.39 Abnormal result of other cardiovascular function study (principal); I25.10 Atherosclerotic heart disease of native coronary artery without angina pectoris; I10 Essential (primary) hypertension
CPT/HCPCS: 36415; 80048; 85025; 85347; 92978; 93458; 96361; 96365; 99152; 99153; C1725; C1753; C1769; C1874; C1887; C1894; C9600; G0378; J1644; J2250; J3010; J3490; J7030; Q0163; Q9967

== ENCOUNTER → 2023-02-17 13:44 | Outpatient (BNVA) | payer OTHER, SELFPAY | PROVIDERS: PCP Nurse Practitioner; Visit Provider Nurse Practitioner Family | DX: I25.10 Atherosclerotic heart disease of native coronary artery without angina pectoris (principal); I10 Essential (primary) hypertension | CPT/HCPCS: 80048; 99214 ==

== ENCOUNTER 2023-02-20 06:15 | Outpatient (CLI) | payer OTHER, SELFPAY ==
--- NOTE | 2023-02-20 06:24 | USCV_ITS ---
Lucas Sparks Age: 62 Gender: M : 1960 Exam Date: 02/20/2023 06:38 Ordering Phys: Hero Jameson M.D ([email or web address]) Technologist: CT Exam Location: [facility] – [place] Indication: sob BP: 130 / 80 HR: 47 Rhythm: Sinus Technical Quality: Adequate MEASUREMENTS (Male / Female) Normal Values 2D ECHO LV Diastolic Diameter PLAX 4.3 cm 4.2 - 5.9 / 3.9 - 5.3 cm LV Systolic Diameter PLAX 2.9 cm IVS Diastolic Thickness 1.5 cm 0.6 - 1.0 / 0.6 - 0.9 cm IVS Systolic Thickness 1.5 cm LVPW Diastolic Thickness 1.2 cm 0.6 - 1.0 / 0.6 - 0.9 cm LVPW Systolic Thickness 2.1 cm LV Ejection Fraction 2D Teich 61.6 % LV Ejection Fraction MOD 2C 66.6 % LV Ejection Fraction 2C AL 64.9 % LA Diameter 3.5 cm Aorta at Sinotubular Diameter 3.8 cm IVC Diameter 1.8 cm M-MODE Aortic Annulus Diameter 4.3 cm LA Ao Ratio MM 0.9 MV E Point Septal Separation 0.7 cm DOPPLER AV Peak Velocity 120.0 cm/s LVOT Peak Velocity 71.0 cm/s MV Peak Velocity 83.0 cm/s MV Area PHT 5.0 cm squared Mitral E to A Ratio 2.2 MV E' Velocity 49.0 cm/s Mitral E to MV E' Ratio 10.9 Mitral E to LV E' Lateral Ratio 8.9 Mitral E to LV E' Septal Ratio 14.2 TR Peak Velocity 78.3 cm/s TR Peak Gradient 2.4 mmHg TR Mean Velocity 58.7 cm/s TR Mean Gradient 1.5 mmHg TR Velocity Time Integral 16.4 cm TV Peak E Velocity 63.0 cm/s Right Atrial Pressure 3.0 mmHg Pulmonary Artery Systolic Pressu 5.4 mmHg PV Peak Velocity 87.0 cm/s FINDINGS Left Ventricle Left ventricle is normal in size. LV systolic function is normal with EF of 60 to 65%. No regional wall motion abnormalities are seen. Right Ventricle Normal in size and function Right Atrium Normal in size Left Atrium Normal in size Mitral Valve Structurally normal mitral valve. Mild mitral regurgitation. Aortic Valve Structurally normal aortic valve. No significant stenosis or regurgitation is seen. Tricuspid Valve Mild tricuspid regurgitation. Insufficient TR jet to calculate RVSP. Pulmonic Valve Not well-visualized Pericardium Normal Aorta Aortic root is mildly dilated IVC Appears to be normal CONCLUSIONS LV systolic function is normal with EF of 60 to 65%. Mild mitral regurgitation Mild tricuspid regurgitation Aortic root is mildly dilated. Compared to prior echocardiogram from 2019, aortic root is mildly dilated. Hero Jameson MD (Electronically Signed) Final Date: 28 Feb 2023 16:18 S
== END 2023-02-20 06:16 | disposition home or self-care (01) ==
PROVIDERS: PCP Nurse Practitioner; Visit Provider Internal Medicine
DX: R06.02 Shortness of breath (principal)
CPT/HCPCS: 93306

== ENCOUNTER → 2023-02-26 13:06 | Outpatient (BNVA) | payer OTHER, SELFPAY | PROVIDERS: PCP Nurse Practitioner; Visit Provider Internal Medicine | DX: I25.10 Atherosclerotic heart disease of native coronary artery without angina pectoris (principal); I10 Essential (primary) hypertension | CPT/HCPCS: 99214 ==

== ENCOUNTER → 2023-03-11 13:26 | Outpatient (BNVA) | payer OTHER, SELFPAY | PROVIDERS: PCP Nurse Practitioner; Visit Provider Dermatology | DX: L57.0 Actinic keratosis (principal); L72.0 Epidermal cyst; L70.8 Other acne; L82.1 Other seborrheic keratosis; L81.4 Other melanin hyperpigmentation; L57.8 Other skin changes due to chronic exposure to nonionizing radiation; D18.01 Hemangioma of skin and subcutaneous tissue; Z80.8 Family history of malignant neoplasm of other organs or systems; Z85.3 Personal history of malignant neoplasm of breast | CPT/HCPCS: 17000; 99213 ==

== ENCOUNTER 2023-08-03 09:29 | Emergency (ER) | payer OTHER, SELFPAY ==
[2023-08-03] VITALS (7 sets, daily range): BP systolic 146–187; BP diastolic 80–109; PULSE 67–91; RESP 18; TEMP 36.6–36.7; O2SAT 96–100; BMI 23.6
--- NOTE | 2023-08-03 09:34 | ECG_ITS ---
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 Measurements Intervals [place] Rate: 74 P: 73 MS: 161 QRS: 55 QRSD: 94 T: 65 QT: 384 QTc: 427 Interpretive Statements SINUS RHYTHM No previous ECG available for comparison Electronically Signed On 08-03-2023 10:15:22 CDT by Hero Jameson M.D. [id number]
--- NOTE | 2023-08-03 09:50 | XRR_ITS ---
PROCEDURE INFORMATION: Exam: XR Chest Exam date and time: 08/03/2023 10:20 AM Age: 63 years old Clinical indication: Dyspnea TECHNIQUE: Imaging protocol: Radiologic exam of the chest. Views: 1 view. COMPARISON: CT chest abdpel w/*[id number] 09/07/2021 8:20 PM FINDINGS: Lungs: Unremarkable. No consolidation. Pleural spaces: Unremarkable. No pleural effusion. No pneumothorax. Heart/Mediastinum: Unremarkable. No cardiomegaly. Bones/joints: Mild scoliosis. XR/XR chest 1V portable [id number] IMPRESSION: No acute disease.
--- NOTE | 2023-08-03 09:50 | W.ED.SOB ---
HPI - SOB/Dyspnea General: Chief Complaint: Shortness of Breath/Dyspnea Stated Complaint: high bp Time Seen by Provider: 08/03/23 09:49 History of Present Illness: HPI Narrative: 63-year-old male presents emergency department with complaints that he is not been feeling well since he received a cardiac stent. He states he feels like he is having shortness of breath and has elevated blood pressure after he checked it at home. He states that he had initially a systolic of over 200. He states he has on his own without the direction of his physician discontinued all of his antihypertensive medications several months ago. 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 Associated symptoms: Reports chest pain Review of Systems General: Reports: 10 or more systems reviewed and unremarkable except in HPI and below Card: Reports: chest pain Resp: Reports: dyspnea Psych: Reports: anxiety PFSH ED PFSH: Medical History Atherosclerosis of coronary artery Family history of melanoma Hypertension Migraine headache with aura Seizure Seizure-like activity Family History Other CAD (coronary artery disease) Dementia Hypertension Stroke Social History Smoking and tobacco/nicotine status: never used tobacco/nicotine Alcohol intake: current Alcohol intake frequency: few times a week Alcohol type: beer Physical Exam Narrative: EXAM NARRATIVE: Constitutional: the patient appears well nourished and with normal developement. Vital signs reviewed as documented. HENMT: Normocephalic, atraumatic. Extermal ears with normal appearance without drainage. Nose without drainage, normal appearance. Mucus membranes moist. Neck is supple, No jugular venous distension, trachea is midline, no appreciable carotid bruits. No lymphadenopathy. No meningeal signs. Flexion, extension and lateral rotation is without pain. Eyes: Pupils are equal, round, reactive to light and accomidation. No scleral icterus. Extra-ocular movement are intact. Thorax is symmetrical and with equal rise and fall with respirations. Resp: Lungs are clear to auscultation. No wheezes, rales, crackles or ronchi at pesent. Cardio: Regular rate and rhythm. Positive S1, S2. No appreciable murmurs, rubs or gallops. GI: Abdominal exam reveals normal bowel sounds to all quadrants. No organomegaly. No obvious palpable masses noted. No hepatomegaly appreciated. Soft, nontender to palpation. Extremity: Extremities are non-edematous and both femoral and pedal pulses are 2+ and equal bilaterally. Moves all extremities well, sensation in all extremities. Neuro: Alert and oriented x4, person, place, time and situation. Cranial nerves II through XII are grossly intact, there is no focal neurological deficits that I can appreciate at present. Motor strength in the upper and lower extremities are equal and bilateral 5/5. Psych: Cooperative, calm, normal thought process, appropriate judgment. Skin: No lesions, rashes. No gross abnormalities noted. Back: Symmetrical, no obvious deformity, No CVA tenderness Course Vital Signs: Vital signs: Vital Signs Temperature 97.9 F 08/03/23 14:22 Pulse Rate 86 08/03/23 14:22 Respiratory Rate 18 08/03/23 14:22 Blood Pressure 146/80 08/03/23 14:22 Pulse Oximetry 100 08/03/23 14:22 Oxygen Delivery Me thod Room Air 08/03/23 13:15 MDM - SOB/Dyspnea Medical Decision Making Physical exam completed and documented, I will obtain cardiac enzymes, twelve-lead EKG chest radiograph and CBC and CMP to evaluate the patient's presenting concerns. I will provide him with antihypertensive medications. I have had an extensive discussion with the patient for approximately 35 minutes discussing the importance of medication compliance as well as the risk and possible complications of medication noncompliance. The patient again does appear to be very anxious and preoccupied with his blood pressure as he is continually looking at the cardiac and blood pressure monitor in the room. Patient does appear to be stating contradictory statements and states that he is not taking his blood pressure medicines although he does appear to be significantly concerned about his elevated blood pressure. Medical Records I reviewed the patient's medical records. Lab Data I reviewed the patient's lab results. 08/03/23 10:09 08/03/23 10:09 Labs/Radiology: Radiology Impressions Chest X-Ray 08/03/23 09:50 IMPRESSION: No acute disease. Laboratory Results WBC 4.87 10^3/uL (3.29-11.43) 08/03/23 10:09 RBC 4.89 10^6/uL (3.85-5.65) 08/03/23 10:09 Hgb 15.80 g/dL (11.27-16.99) 08/03/23 10:09 Hct 45.5 % (37-53) 08/03/23 10:09 MCV 93.0 fl (82-101) 08/03/23 10:09 MCH 32.3 pg (27-33) 08/03/23 10:09 MCHC 34.7 g/dL (30-55) 08/03/23 10:09 RDW 11.8 % (12.1-15.1) L 08/03/23 10:09 Plt Count 144 10^3/cmm (157-399) L 08/03/23 10:09 MPV 10.2 fL (7.4-10.4) 08/03/23 10:09 Neut % (Auto) 66.8 % 08/03/23 10:09 Lymph % (Auto) 23.0 % 08/03/23 10:09 [place] % (Auto) 7.0 % 08/03/23 10:09 Eos % (Auto) 1.6 % 08/03/23 10:09 Baso % (Auto) 1.4 % 08/03/23 10:09 Neut # (Auto) 3.25 10^3/uL (1.8-7.7) 08/03/23 10:09 Lymph # (Auto) 1.1 10^3/uL (0.8-4.8) 08/03/23 10:09 [place] # (Auto) 0.3 10^3/uL (0.2-0.9) 08/03/23 10:09 Eos # (Auto) 0.1 10^3/uL (0.0-0.8) 08/03/23 10:09 Baso # (Auto) 0.1 10^3/uL (0.0-0.1) 08/03/23 10:09 Nucleated RBC % (auto) 0 % 08/03/23 10:09 Nucleated RBCs # 0.0 /100WBC 08/03/23 10:09 PT 13.40 SECONDS (12.1-14.9) 08/03/23 10:09 INR 0.99 (0.8-1.2) 08/03/23 10:09 APTT 26.1 SECONDS (23.9-36.7) 08/03/23 10:09 Sodium 136 mmol/L (136-145) 08/03/23 10:09 Potassium 4.2 mmol/L (3.5-5.1) 08/03/23 10:09 Chloride 102 mmol/L (98-107) 08/03/23 10:09 Carbon Dioxide 25 mmol/L (22-29) 08/03/23 10:09 Anion Gap 13.2 (5-19) 08/03/23 10:09 BUN 13 mg/dL (8-23) 08/03/23 10:09 Creatinine 1.0 mg/dL (0.7-1.2) 08/03/23 10:09 GFR Calculation 75.5 mL/min (90-130) L 08/03/23 10:09 Glucose 116 mg/dL (65-115) H 08/03/23 10:09 Calculated Osmolality 283 mOsm/kg (285-295) L 08/03/23 10:09 Calcium 9.2 mg/dL (8.5-10.5) 08/03/23 10:09 Total Bilirubin 0.8 mg/dL (0.15-1.2) 08/03/23 10:09 AST 19 U/L (0-40) 08/03/23 10:09 ALT 15 U/L (0-41) 08/03/23 10:09 Alkaline Phosphatase 62 U/L (40-130) 08/03/23 10:09 Troponin T Baseline 9 ng/L (0-15) 08/03/23 10:09 Troponin T 120 Minute 9.86 ng/L (0-15) 08/03/23 11:48 Delta Troponin T 0.86 ABS# (0-10) 08/03/23 11:48 NT-Pro-B Natriuret Pep 305 pg/mL (0-125) H 08/03/23 10:09 Total Protein 6.7 g/dL (6.6-8.7) 08/03/23 10:09 Albumin 4.7 g/dL (3.5-5.2) 08/03/23 10:09 Globulin 2.0 g/dL (1.3-4.6) 08/03/23 10:09 Urine Color Straw (Yellow) 08/03/23 10:40 Urine Appearance Clear (CLEAR) 08/03/23 10:40 Urine pH 7 (5-7) 08/03/23 10:40 Ur Specific [place] 1.005 (1.005-1.030) 08/03/23 10:40 Urine Protein Neg (Negative) 08/03/23 10:40 Urine Glucose (UA) Norm (Normal) 08/03/23 10:40 Urine Ketones Negative (Negative) 08/03/23 10:40 Urine Blood Neg (Negative) 08/03/23 10:40 Urine Nitrate Negative (Negative) 08/03/23 10:40 Urine Bilirubin Neg (Negative) 08/03/23 10:40 Urine Urobilinogen Norm mg/dL (Negative) 08/03/23 10:40 Ur Leukocyte Esterase Negative (Negative) 08/03/23 10:40 Influenza Type A Ag negative (Negative) 08/03/23 13:20 Influenza Type B Ag negative (Negative) 08/03/23 13:20 SARS-CoV-2 Ag (Rapid) negative (Negative) 08/03/23 13:20 All radiology interpretation(s) finalized by discharge ED provider radiology interpretation(s): FINDINGS: Lungs: Unremarkable. No consolidation. Pleural spaces: Unremarkable. No pleural effusion. No pneumothorax. Heart/Mediastinum: Unremarkable. No cardiomegaly. Bones/joints: Mild scoliosis. XR/XR chest 1V portable [id number] IMPRESSION: No acute disease. ? Discharge Plan Discharge Patient Disposition: Home Clinical Impression: Hypertension Condition: Stable Prescriptions: No Action metoprolol succinate 25 mg tablet extended release 24 hr 25 mg PO DAILY Qty: 90 3RF amlodipine 10 mg tablet 10 mg PO DAILY Qty: 30 0RF zinc acetate 50 mg (zinc) Capsule 50 mg PO QAM vitamin E 268 mg (400 unit) Capsule 1 cap PO QAM Vitamin D3 125 mcg (5,000 unit) Tablet 125 mcg PO QAM clopidogrel 75 mg tablet 75 mg PO QAM aspirin 81 mg tablet,chewable 81 mg PO QAM Topamax 100 mg tablet 100 mg PO QAM Discharge Orders: Discharge ED (Routine); Ordered 08/03/23 Ordered By: Min Motta Referrals: Vilma Lomeli FNP [Primary Care Provider] - Discharge Diet: Advance as tolerated Discharge Activity: Resume usual activity Patient Instructions: Hypertension (ED) Coding Level of Care Code ED Dining Room Helper for X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
[2023-08-03 10:20] LABS: Basophils # 0.1 10^3/uL (0.0-0.1); Basophils % 1.4 %; Eosinophils # 0.1 10^3/uL (0.0-0.8); Eosinophils % 1.6 %; Hematocrit 45.5 % (37-53); Lymphocytes # 1.1 10^3/uL (0.8-4.8); Mean Corpuscular HGB Conc 34.7 g/dL (30-55); Mean Corpuscular Hemoglobin 32.3 pg (27-33); Mean Platelet Volume 10.2 fL (7.4-10.4); Monocytes # 0.3 10^3/uL (0.2-0.9); Neutrophils # 3.25 10^3/uL (1.8-7.7); Neutrophils % 66.8 %; Nucleated Red Blood Cells % 0 %; Platelet Count 144 10^3/cmm (157-399); Red Blood Count 4.89 10^6/uL (3.85-5.65); Red Cell Distribution Width 11.8 % (12.1-15.1); White Blood Count 4.87 10^3/uL (3.29-11.43)
[2023-08-03 10:29] LABS: INR 0.99 (0.8-1.2)
[2023-08-03 10:30] LABS: Partial Thromboplastin Time 26.1 SECONDS (23.9-36.7)
[2023-08-03] MEDS: aspirin 81 mg Chew Tablet 324 MG PO (10:37)
[2023-08-03] MEDS: hyDRALAzine 20 mg/mL INJ 1 mL 10 MG IVP (10:37)
[2023-08-03 10:38] LABS: Troponin(5th) Baseline 9 ng/L (0-15)
[2023-08-03 10:50] LABS: Add Urine Microscopic? NO; Charge for UA Resulting for Rev
--- NOTE | 2023-08-03 10:55 | PC.PHAR ---
pt states he takes care of his own medications-pt states [facility]-faxed [facility] to see full med list va not open on weekends-pt states he takes topamax 100mg qam states he is suppose to take 100mg bid-pt states he no longer has any tadalafil 20mg that was on a previously entered med list-pt states no longer takes lipitor-
[2023-08-03 10:58] LABS: Bilirubin Urine Neg (Negative); Blood Urine Neg (Negative); Glucose Urine UA Norm (Normal); Ketones Urine Negative (Negative); Leukocyte Esterase Urine Negative (Negative); Nitrate Urine Negative (Negative); Protein Urine Neg (Negative); Specific Gravity, Urine 1.005 (1.005-1.030); Urine Appearance Clear (CLEAR); Urine Color Straw (Yellow); Urobilinogen Urine Norm (Negative); pH Urine 7 (5-7)
[2023-08-03 11:02] LABS: Alanine Aminotransferase 15 U/L (0-41); Albumin Level 4.7 g/dL (3.5-5.2); Alkaline Phosphatase 62 U/L (40-130); Anion Gap 13.2 (5-19); Aspartate Amino Transferase 19 U/L (0-40); Blood Urea Nitrogen 13 mg/dL (8-23); Calcium 9.2 mg/dL (8.5-10.5); Carbon Dioxide 25 mmol/L (22-29); Chloride 102 mmol/L (98-107); Glomerular Filtration Rate 75.5 mL/min (90-130); Glucose 116 mg/dL (65-115); NT Pro B Type Natriuretic Pept 305 pg/mL (0-125); Osmolality Calculated 283 mOsm/kg (285-295); Potassium 4.2 mmol/L (3.5-5.1); Sodium 136 mmol/L (136-145); Total Bilirubin 0.8 mg/dL (0.15-1.2); Total Protein 6.7 g/dL (6.6-8.7)
--- NOTE | 2023-08-03 11:50 | ECG_ITS ---
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 Measurements Intervals [place] Rate: 73 P: 70 AR: 148 QRS: 56 QRSD: 98 T: 66 QT: 388 QTc: 428 Interpretive Statements SINUS RHYTHM Compared to ECG 08/03/2023 09:34:19 No significant changes Electronically Signed On 08-03-2023 12:32:33 CDT by Hero Jameson M.D. [id number]
[2023-08-03 12:29] LABS: Troponin 5 2HR 9.86 ng/L (0-15); Troponin 5 2HR Delta 0.86 ABS# (0-10)
[2023-08-03 13:43] LABS: SARS Covid-2 Antigen negative (Negative)
[2023-08-03 13:44] LABS: Influenza A by IFA negative (Negative); Influenza B by IFA negative (Negative)
== END 2023-08-03 14:22 | disposition home or self-care (01) ==
PROVIDERS: Emergency Provider Internal Medicine; PCP Nurse Practitioner
DX: I10 Essential (primary) hypertension (principal); Z79.02 Long term (current) use of antithrombotics/antiplatelets; Z79.82 Long term (current) use of aspirin; Z11.52 Encounter for screening for COVID-19; I25.10 Atherosclerotic heart disease of native coronary artery without angina pectoris; Z95.818 Presence of other cardiac implants and grafts
CPT/HCPCS: 36415; 71045; 80053; 81003; 83880; 84484; 85025; 85610; 85730; 87426; 87804; 93005; 96374; 99285; J0360

== ENCOUNTER → 2023-08-06 15:14 | Outpatient (BNVA) | payer OTHER, SELFPAY | PROVIDERS: PCP Nurse Practitioner; Visit Provider Internal Medicine | DX: I25.10 Atherosclerotic heart disease of native coronary artery without angina pectoris (principal); I10 Essential (primary) hypertension | CPT/HCPCS: 99214 ==

== ENCOUNTER → 2023-08-12 08:11 | Outpatient (BNVA) | payer OTHER, SELFPAY | PROVIDERS: PCP Nurse Practitioner; Visit Provider Specialist | DX: G40.109 Localization-related (focal) (partial) symptomatic epilepsy and epileptic syndromes with simple partial seizures, not intractable, without status epilepticus (principal); G43.109 Migraine with aura, not intractable, without status migrainosus | CPT/HCPCS: 99215 ==

== ENCOUNTER → 2023-11-10 14:36 | Outpatient (BNVA) | payer OTHER, SELFPAY | PROVIDERS: PCP Nurse Practitioner; Visit Provider Internal Medicine | DX: I25.10 Atherosclerotic heart disease of native coronary artery without angina pectoris (principal); I10 Essential (primary) hypertension; Z79.82 Long term (current) use of aspirin | CPT/HCPCS: 99214 ==

== ENCOUNTER → 2024-03-11 13:08 | Outpatient (BNVA) | payer OTHER, SELFPAY | PROVIDERS: PCP Nurse Practitioner; Visit Provider Nurse Practitioner Family | DX: L82.1 Other seborrheic keratosis (principal); S80.862A Insect bite (nonvenomous), left lower leg, initial encounter; X58.XXXA Exposure to other specified factors, initial encounter; D22.5 Melanocytic nevi of trunk; L81.4 Other melanin hyperpigmentation | CPT/HCPCS: 99214 ==

== ENCOUNTER → 2024-05-10 12:18 | Outpatient (BNVA) | payer OTHER, SELFPAY | PROVIDERS: PCP Nurse Practitioner; Visit Provider Internal Medicine | DX: I25.10 Atherosclerotic heart disease of native coronary artery without angina pectoris (principal); I10 Essential (primary) hypertension | CPT/HCPCS: 99214 ==

== ENCOUNTER → 2024-09-16 13:31 | Outpatient (BNVA) | payer OTHER, SELFPAY | PROVIDERS: PCP Nurse Practitioner; Visit Provider Specialist | DX: G40.109 Localization-related (focal) (partial) symptomatic epilepsy and epileptic syndromes with simple partial seizures, not intractable, without status epilepticus (principal); G43.109 Migraine with aura, not intractable, without status migrainosus | CPT/HCPCS: 99213 ==

== ENCOUNTER 2024-11-19 13:27 | Outpatient (CLI) | payer OTHER, SELFPAY ==
--- NOTE | 2024-11-19 13:31 | CT_ITS ---
WS: [id number] Exam: CT abdomen pelvis wo/w [id number] Date/Time of Exam: 11/19/2024 1:40 PM Reason For Exam: ABNORMAL CYTOLOGY OF BLADDER DLP: 721.[address] scans at [facility] use at least one of these dose optimization techniques: automated exposure control; mA and/or kV adjustment per patient size (includes targeted exams where dose is matched to clinical indication); or iterative reconstruction. Lower lung zones are clear. The liver, spleen, stomach and pancreas appear normal. The gallbladder is unremarkable. The IVC and aorta are patent. Normal adrenal glands. There are 2 nonobstructing stones in the RIGHT kidney both measuring in the range of 2 to 3 mm each. There are 2 cysts in the LEFT kidney. The largest about 2.6 cm in greatest diameter and the smaller cyst approximately 2 cm. No sign of renal obstruction. No ureteral stones. No mass or adenopathy in the abdomen or pelvis. Small bowel loops are normal in caliber. Normal appendix visualized. There is sigmoid diverticulosis but no sign of acute diverticulitis. There may be a TUR defect in the prostate gland. Degenerative changes in the lumbar spine and both hips. No destructive bone lesion is noted. No significant abdominal or pelvic wall defect. CT/CT abdomen pelvis wo/w [id number] IMPRESSION: 1. No mass, adenopathy or acute process in the abdomen or pelvis. 2. 2 small nonobstructing stones in the RIGHT kidney measuring in the range of 2 to 3 mm each. 3. 2 cysts in the left kidney. The largest about 2.6 cm in greatest diameter. 4. Colonic diverticulosis most marked in the sigmoid region. No sign of acute d iverticulitis.
[2024-11-19 14:15] LABS: Blood Urea Nitrogen 12 mg/dL (8-23)
[2024-11-19] MEDS: iohexol 350 mg/mL 500 mL Btl (per mL) IV (14:20)
== END 2024-11-19 13:28 | disposition home or self-care (01) ==
PROVIDERS: PCP Nurse Practitioner; Visit Provider Nurse Practitioner
DX: Z01.89 Encounter for other specified special examinations (principal); N20.0 Calculus of kidney; N28.1 Cyst of kidney, acquired; K57.30 Diverticulosis of large intestine without perforation or abscess without bleeding; R93.89 Abnormal findings on diagnostic imaging of other specified body structures; M47.896 Other spondylosis, lumbar region; M16.0 Bilateral primary osteoarthritis of hip
CPT/HCPCS: 74178; 82565; 84520

== ENCOUNTER 2024-12-16 09:39 | Emergency (ER) | payer OTHER, SELFPAY ==
[2024-12-16] VITALS (10 sets, daily range): BP systolic 128–181; BP diastolic 78–107; PULSE 56–80; RESP 16–18; TEMP 36.6; O2SAT 96–100; BMI 26.1
--- NOTE | 2024-12-16 09:40 | ECG_ITS ---
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 Measurements Intervals [place] Rate: 76 P: 81 WA: 162 QRS: 73 QRSD: 79 T: 74 QT: 363 QTc: 409 Interpretive Statements SINUS RHYTHM Compared to ECG 08/03/2023 11:59:15 No significant changes Electronically Signed On 12-17-2024 19:07:20 CDT by Hero Jameson M.D. [id number]
--- NOTE | 2024-12-16 11:51 | PC.PHAR ---
patient is va
--- NOTE | 2024-12-16 12:54 | XR_ITS ---
WS: [id number] Portable AP upright chest, 12/16/2024 Clinical Data: Chest pain Comparison: Portable chest, 08/03/2023 Findings: No nodules, masses or effusions are seen. The heart is normal. The pulmonary vascularity is not increased. No pneumonia or pneumothorax is seen. The aortic arch and descending thoracic aorta show mild tortuosity. Monitor leads are on the chest wall. XR/XR chest 1V portable [id number] Impression: Atherosclerosis.
[2024-12-16 13:03] LABS: Basophils # 0.1 10^3/uL (0.0-0.1); Basophils % 1.1 %; Eosinophils # 0.1 10^3/uL (0.0-0.8); Eosinophils % 2.1 %; Hematocrit 44.1 % (37-53); Lymphocytes # 1.6 10^3/uL (0.8-4.8); Lymphocytes % 27.8 %; Mean Corpuscular HGB Conc 34.9 g/dL (30-55); Mean Corpuscular Hemoglobin 32.7 pg (27-33); Mean Corpuscular Volume 93.6 fl (82-101); Mean Platelet Volume 10.9 fL (7.4-10.4); Monocytes # 0.4 10^3/uL (0.2-0.9); Monocytes % 7.7 %; Neutrophils # 3.43 10^3/uL (1.8-7.7); Neutrophils % 61.1 %; Nucleated Red Blood Cells % 0 %; Platelet Count 153 10^3/cmm (157-399); Red Blood Count 4.71 10^6/uL (3.85-5.65); Red Cell Distribution Width 11.9 % (12.1-15.1); White Blood Count 5.61 10^3/uL (3.29-11.43)
[2024-12-16 13:22] LABS: Alanine Aminotransferase 13 U/L (0-41); Albumin Level 4.4 g/dL (3.5-5.2); Alkaline Phosphatase 68 U/L (40-130); Aspartate Amino Transferase 24 U/L (0-40); Blood Urea Nitrogen 17 mg/dL (8-23); Calcium 9.2 mg/dL (8.5-10.5); Carbon Dioxide 19 mmol/L (22-29); Chloride 105 mmol/L (98-107); Creatinine Clr Calc Pharmacy 78.6752; Globulin 2.5 g/dL (1.3-4.6); Glomerular Filtration Rate 75.2 mL/min (90-130); Glucose 100 mg/dL (65-115); Magnesium 2.4 mg/dL (1.7-2.3); Osmolality Calculated 282 mOsm/kg (285-295); Sodium 135 mmol/L (136-145); Total Bilirubin 0.3 mg/dL (0.15-1.2); Total Protein 6.9 g/dL (6.6-8.7); Troponin(5th) Baseline 11 ng/L (0-15)
[2024-12-16 13:23] LABS: Anion Gap 14.9 (5-19); C Reactive Protein < 3.0 mg/L (0.0-4.9); Potassium 3.9 mmol/L (3.5-5.1)
--- NOTE | 2024-12-16 13:40 | W.ED.CHESTPA ---
HPI - Chest Pain General: Chief Complaint: Chest Pain Stated Complaint: mild chest pain, dizzy Time Seen by Provider: 12/16/24 12:37 History of Present Illness: Patient presents to the ER from the [place] [facility] with intermittent left-sided chest pain. He said this been going off and on for about 2 weeks but got worse last couple days. Patient's not having this pain currently. Patient denies any diaphoresis nausea vomiting shortness of breath. Patient did say he had a stent placed about 2 years ago here by Dr. Jackson. Patient also reports generalized muscle aches and pains. Patient stated he was on a statin from the time he had a stent placed up until about October when he stopped the statin because he thought it may be causing his muscle aches and pains. They have not changed. Patient does have seizures history and does see Dr. Vizcaino. Related Data Previous Rx's ?Medication ?Instructions ?Recorded aspirin 81 mg chewable tablet 81 mg PO QAM #90 tabs 05/10/24 atorvastatin 40 mg tablet 40 mg PO DAILY #90 tabs 05/10/24 clopidogrel 75 mg tablet 75 mg PO QAM #90 tabs 05/10/24 metoprolol succinate 25 mg 25 mg PO DAILY #90 tabs 05/10/24 tablet,extended release 24 hr amlodipine 10 mg tablet 10 mg PO DAILY #90 tabs 08/23/24 topiramate 100 mg tablet (Topamax) 150 mg (1.5 x 100 mg) PO BID #270 11/14/24 tabs Allergies Allergy/AdvReac Type Severity Reaction Status Date / Time hydrocortisone Allergy unk Verified 09/16/24 14:20 Review of Systems General: Reports: 10 or more systems reviewed and unremarkable except in HPI and below PFSH ED PFSH: Medical History Atherosclerosis of coronary artery Family history of melanoma Hypertension Seizure Seizure-like activity Migraine headache with aura Family History Other CAD (coronary artery disease) Dementia Hypertension Stroke Social History Smoking and tobacco/nicotine status: never used tobacco/nicotine Alcohol intake: current Alcohol intake frequency: few times a month Alcohol type: beer Substance/Drug Use: current Physical Exam Const: COMMON NORMALS: no acute distress, average body habitus, patient oriented x3, no limitations, alert and well nourished HENMT: COMMON NORMALS: normocephalic, atraumatic, hearing grossly normal bilaterally, external ears normal, Normal external nose present, moist oral mucous membranes and oropharynx normal HEAD & SCALP: normocephalic and atraumatic NOSE: Normal external nose present EXTERNAL EAR: Yes external ears normal Neck/C-Spine: COMMON NORMALS: no JVD Chest: COMMONS NORMALS: normal inspection of the chest and normal palpation of entire chest wall Resp: COMMON NORMALS: normal respiratory effort, No retractions, No use of accessory muscles and clear to auscultation bilaterally AUSCULTATION: clear to auscultation bilaterally Cardio: COMMON NORMALS: no JVD, regular rate, regular rhythm, S1 normal heart sound present, S2 normal heart sound present, No gallops present (Cardio), No clicks present (Cardio), No murmurs present (Cardio) and No rub (Cardio) RATE: regular rate RHYTHM: regular rhythm HEART SOUNDS: S1 normal heart sound present and S2 normal heart sound present GI: COMMON NORMALS: Normal to inspection, nondistended, normoactive bowel sounds present, Soft to palpation, non-tender and no masses PALPATION: Yes Soft to palpation Neuro: COMMON NORMALS: patient oriented x3 SENSORIUM/ORIENTATION: Yes alert Course Vital Signs: Vital signs: Vital Signs Temperature 97.8 F 12/16/24 09:45 Pulse Rate 59 L 12/16/24 15:00 Respiratory Rate 18 12/16/24 15:00 Blood Pressure 140/89 12/16/24 15:00 Pulse Oximetry 99 12/16/24 15:00 Oxygen Delivery Me thod Room Air 12/16/24 09:45 MDM - Chest Pain Medical Decision Making Patient was worked up in standard chest pain fashion with serial lab work, enzymes, EKGs, chest x-ray, all of which was essentially benign. Patient will be discharged home instructed to follow back up with his PCP. Patient thinks it may be when he increased the dose of his Topamax the symptoms started. He feels like he may be on too much as he is going to take it upon himself to come back to his previous dose and see if he feels better. Medical Records I reviewed the patient's medical records. Lab Data I reviewed the patient's lab results. 12/16/24 11:54 12/16/24 11:54 Radiology Impressions Chest X-Ray 12/16/24 12:54 Impression: Atherosclerosis. Laboratory Results WBC 5.61 10^3/uL (3.29-11.43) 12/16/24 11:54 RBC 4.71 10^6/uL (3.85-5.65) 12/16/24 11:54 Hgb 15.40 g/dL (11.27-16.99) 12/16/24 11:54 Hct 44.1 % (37-53) 12/16/24 11:54 MCV 93.6 fl (82-101) 12/16/24 11:54 MCH 32.7 pg (27-33) 12/16/24 11:54 MCHC 34.9 g/dL (30-55) 12/16/24 11:54 RDW 11.9 % (12.1-15.1) L 12/16/24 11:54 Plt Count 153 10^3/cmm (157-399) L 12/16/24 11:54 MPV 10.9 fL (7.4-10.4) H 12/16/24 11:54 Neut % (Auto) 61.1 % 12/16/24 11:54 Lymph % (Auto) 27.8 % 12/16/24 11:54 [place] % (Auto) 7.7 % 12/16/24 11:54 Eos % (Auto) 2.1 % 12/16/24 11:54 Baso % (Auto) 1.1 % 12/16/24 11:54 Neut # (Auto) 3.43 10^3/uL (1.8-7.7) 12/16/24 11:54 Lymph # (Auto) 1.6 10^3/uL (0.8-4.8) 12/16/24 11:54 [place] # (Auto) 0.4 10^3/uL (0.2-0.9) 12/16/24 11:54 Eos # (Auto) 0.1 10^3/uL (0.0-0.8) 12/16/24 11:54 Baso # (Auto) 0.1 10^3/uL (0.0-0.1) 12/16/24 11:54 Nucleated RBC % (auto) 0 % 12/16/24 11:54 Nucleated RBCs # 0.0 /100WBC 12/16/24 11:54 Sodium 135 mmol/L (136-145) L 12/16/24 11:54 Potassium 3.9 mmol/L (3.5-5.1) 12/16/24 11:54 Chloride 105 mmol/L (98-107) 12/16/24 11:54 Carbon Dioxide 19 mmol/L (22-29) L 12/16/24 11:54 Anion Gap 14.9 (5-19) 12/16/24 11:54 BUN 17 mg/dL (8-23) 12/16/24 11:54 Creatinine 1.0 mg/dL (0.7-1.2) 12/16/24 11:54 GFR Calculation 75.2 mL/min (90-130) L 12/16/24 11:54 Glucose 100 mg/dL (65-115) 12/16/24 11:54 Calculated Osmolality 282 mOsm/kg (285-295) L 12/16/24 11:54 Calcium 9.2 mg/dL (8.5-10.5) 12/16/24 11:54 Magnesium 2.4 mg/dL (1.7-2.3) H 12/16/24 11:54 Total Bilirubin 0.3 mg/dL (0.15-1.2) 12/16/24 11:54 AST 24 U/L (0-40) 12/16/24 11:54 ALT 13 U/L (0-41) 12/16/24 11:54 Alkaline Phosphatase 68 U/L (40-130) 12/16/24 11:54 Troponin T Baseline 11 ng/L (0-15) 12/16/24 11:54 Troponin T 120 Minute 10.56 ng/L (0-15) 12/16/24 14:21 Delta Troponin T -0.44 ABS# (0-10) L 12/16/24 14:21 C-Reactive Protein < 3.0 mg/L (0.0-4.9) 12/16/24 11:54 Total Protein 6.9 g/dL (6.6-8.7) 12/16/24 11:54 Albumin 4.4 g/dL (3.5-5.2) 12/16/24 11:54 Globulin 2.5 g/dL (1.3-4.6) 12/16/24 11:54 All radiology interpretation(s) finalized by discharge Discharge Plan Discharge Patient Disposition: Home Clinical Impression: Atypical chest pain, Medication side effect Condition: Stable Prescriptions: No Action atorvastatin 40 mg tablet 40 mg PO DAILY Qty: 90 3RF aspirin 81 mg tablet,chewable 81 mg PO QAM Qty: 90 3RF clopidogrel 75 mg tablet 75 mg PO QAM Qty: 90 3RF metoprolol succinate 25 mg tablet extended release 24 hr 25 mg PO DAILY Qty: 90 3RF amlodipine 10 mg tablet 10 mg PO DAILY Qty: 90 3RF topiramate [Topamax] 100 mg tablet 150 mg PO BID Qty: 270 3RF Discharge Orders: Discharge ED (Routine); Ordered 12/16/24 Ordered By: Troy Raphael Referrals: Vilma Lomeli FNP [Primary Care Provider] - 1 week Patient Instructions: Chest Pain (ED) Activity Restrictions/Additional Instructions: Your evaluation ER that included physical exam, chest x-ray, lab work, and EKG, chest x-ray did not reveal any acute cause of your symptomatology. After further discussion with the it may be a side effect of the increased dose of your Topamax. Please return to the lower dose of your Topamax and please let Dr. Vizcaino know if your symptoms resolved. Otherwise please follow-up with your family practice physician within the next 7 days for further evaluation testing as needed. Print Language: Sinhala Coding Level of Care Code ED Lending Advisor for X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
--- NOTE | 2024-12-16 15:00 | ECG_ITS ---
[facility]: 2024-12-16 Pat Name: Lucas Sparks Department: Room: Gender: Male Clinical Social Work Therapist: : [id number] Requested By: Troy Raphael Order Number: [id number] Angelo MD: Hero Jameson M.D. Measurements Intervals [place] Rate: 70 P: -27 IN: 162 QRS: -11 QRSD: 95 T: -10 QT: 403 QTc: 436 Interpretive Statements SINUS RHYTHM WITH OCCASIONAL SUPRAVENTRICULAR PREMATURE COMPLEXES Compared to ECG 12/16/2024 09:44:00 No significant changes Electronically Signed On 12-17-2024 19:22:56 CDT by Hero Jameson M.D. [email or web address]
[2024-12-16 15:12] LABS: Troponin 5 2HR 10.56 ng/L (0-15); Troponin 5 2HR Delta -0.44 ABS# (0-10)
== END 2024-12-16 15:38 | disposition home or self-care (01) ==
PROVIDERS: Emergency Provider Emergency Medicine; PCP Nurse Practitioner
DX: R07.89 Other chest pain (principal); T50.905A Adverse effect of unspecified drugs, medicaments and biological substances, initial encounter; X58.XXXA Exposure to other specified factors, initial encounter; I10 Essential (primary) hypertension; I25.10 Atherosclerotic heart disease of native coronary artery without angina pectoris
CPT/HCPCS: 36415; 71045; 80053; 83735; 84484; 85025; 86140; 93005; 99285

== ENCOUNTER → 2025-02-07 14:57 | Outpatient (BNVA) | payer OTHER, SELFPAY | PROVIDERS: PCP Nurse Practitioner; Visit Provider Internal Medicine | DX: I25.10 Atherosclerotic heart disease of native coronary artery without angina pectoris (principal); I10 Essential (primary) hypertension; Z79.01 Long term (current) use of anticoagulants; Z79.82 Long term (current) use of aspirin | CPT/HCPCS: 99214 ==

== ENCOUNTER → 2025-04-04 13:31 | Outpatient (BNVA) | payer OTHER, SELFPAY | PROVIDERS: PCP Nurse Practitioner; Visit Provider Nurse Practitioner Family | DX: L72.0 Epidermal cyst (principal); L82.1 Other seborrheic keratosis; D22.5 Melanocytic nevi of trunk; L81.4 Other melanin hyperpigmentation; L57.8 Other skin changes due to chronic exposure to nonionizing radiation; L57.0 Actinic keratosis | CPT/HCPCS: 17000; 99213 ==

== ENCOUNTER → 2025-09-19 10:44 | Outpatient (BNVA) | payer OTHER, SELFPAY | PROVIDERS: PCP Nurse Practitioner; Visit Provider Specialist | DX: G43.109 Migraine with aura, not intractable, without status migrainosus (principal); G40.109 Localization-related (focal) (partial) symptomatic epilepsy and epileptic syndromes with simple partial seizures, not intractable, without status epilepticus; R03.0 Elevated blood-pressure reading, without diagnosis of hypertension | CPT/HCPCS: 99214 ==